=== PATIENT | female | born 1955 | race Caucasian/White ===

== ENCOUNTER → 2017-03-25 | Outpatient (CLI) | payer BC ==
[~2017-03-25] MED LIST: LEVE1TAB57 PO; OXYC-57 PO
--- NOTE | 2017-03-25 15:19 | MAMMOGRAPHY REPORT ---
BILATERAL DIGITAL SCREENING MAMMOGRAM WITH CAD: 03/25/2017 CLINICAL HISTORY: Routine screening. Patient has no complaints. TECHNIQUE: Current study was also evaluated with a Computer Aided Detection (CAD) system. Bilateral CC and MLO views were obtained. COMPARISON: Comparison is made to exams dated: 03/24/2016 mammogram, 03/21/2015 mammogram, 03/20/2014 m ammogram, 03/17/2013 mammogram, 03/15/2012 mammogram, and 03/13/2011 mammogram - [facility] er. BREAST COMPOSITION: There are scattered areas of fibroglandular density in both breasts. FINDINGS: No suspicious masses, calcifications, or areas of architectural distortion are noted in ei ther breast. There has been no significant interval change compared to prior exams. Scattered bilater al benign-appearing calcifications are not significantly changed. IMPRESSION: ACR BI-RADS CATEGORY 2: BENIGN There is no mammographic evidence of malignancy. A 1 year screening mammogram is recommended. The pa tient will receive written notification of the results. Approximately 10% of breast cancers are not detected with mammography. A negative mammographic report should not delay biopsy if a clinically suggestive mass is present. Naomi Olson M.D. /:03/25/2017 12:00:12 Sample Finisher: Rosetta RAMIREZ(R)(M), [facility] letter sent: Normal 1/2 BI-RADS Code: ACR BI-RADS Category 2: Benign
== END | disposition home or self-care (01) ==
LOC: C.MAMM 11:00
PROVIDERS: ATTEND Family Medicine
DX: Z12.31 Encounter for screening mammogram for malignant neoplasm of breast (principal)

== ENCOUNTER → 2018-03-29 | Outpatient (CLI) | payer BC ==
--- NOTE | 2018-03-30 06:58 | MAMMOGRAPHY REPORT ---
BILATERAL DIGITAL SCREENING MAMMOGRAM TOMOSYNTHESIS WITH CAD: 03/29/2018 CLINICAL HISTORY: Routine screening. Patient has no complaints. TECHNIQUE: The study was acquired using full field digital technology and interpreted from soft copy. Breast tomosynthesis in addition to standard 2D mammography was performed. Current study was also ev aluated with a Computer Aided Detection (CAD) system. COMPARISON: Comparison is made to exams dated: 03/25/2017 mammogram, 03/24/2016 mammogram, 03/21/2015 m ammogram, 03/20/2014 mammogram, 03/17/2013 mammogram, and 03/15/2012 mammogram - [facility] ter. BREAST COMPOSITION: There are scattered areas of fibroglandular density in both breasts. FINDINGS: There are benign calcifications in both breasts. No suspicious mass, architectural distortion or clu ster of microcalcifications is seen. IMPRESSION: ACR BI-RADS CATEGORY 2: BENIGN There is no mammographic evidence of malignancy. A 1 year screening mammogram is recommended.( [id number]) The patient will receive written notification of the results. Some breast cancers are not detected with mammography. A negative mammographic report should not marisol y biopsy if a clinically suggestive mass is present. Shaila Horne M.D. ay/:03/29/2018 15:59:29 Surgery Scheduling Coordinator: RT Mariano(Mare)(M), [facility] letter sent: Normal 1/2 BI-RADS Code: ACR BI-RADS Category 2: Benign
== END | disposition home or self-care (01) ==
LOC: C.MAMM 10:57
PROVIDERS: ATTEND Family Medicine
DX: Z12.31 Encounter for screening mammogram for malignant neoplasm of breast (principal)